=== PATIENT | female | born 1995 | race American Indian/Alaskan Native ===

== ENCOUNTER 2019-09-24 17:04 | Emergency (ER) | payer OTHER ==
[2019-09-24 17:10] VITALS: BP 159/101; PULSE 104; RESP 18; TEMP 98
[2019-09-24] MEDS ORDERED: LIDOCAINE 1% INJ 10MG/ML (20 ML MDV) SQ ONE (17:42)
[2019-09-24] MEDS ORDERED: CEPHALEXIN 500MG STARTER PACK 4 CAP BTL PO STA (18:26)
[2019-09-24] MEDS ORDERED: SULFAMETH-TMP DS STARTER PACK 2 TAB BTL PO STA (18:26)
--- NOTE | 2019-09-24 18:27 | ED ---
General Adult HPI - General Chief complaint: Skin/Abscess/Foreign Body Stated complaint: cyst lt armpit Time Seen by Provider: 09/24/19 17:12 Source: patient, RN notes reviewed Mode of arrival: ambulatory Limitations: no limitations - History of Present Illness Initial comments: 24-year-old female presents to the emergency department for a chief complaint of abscess left armpit. This has been there for about a week. States she has had abscesses before but not in this armpit. Denies fevers or chills. Denies any constitutional symptoms.Patient has no other complaints at this time including shortness of breath, chest pain, abdominal pain, nausea or vomiting, headache, or visual changes. - Related Data Previous Rx's Medication Instructions Recorded Cephalexin [Keflex] 500 mg PO Q6H #40 cap 09/24/19 Sulfamethox-Tmp 800-160Mg [Bactrim 1 tab PO Q12HR #20 tab 09/24/19 DS 800-160 mg] Allergies Allergy/AdvReac Type Severity Reaction Status Date / Time No Known Allergies Allergy Verified 09/24/19 17:10 Review of Systems ROS Statement: Those systems with pertinent positive or pertinent negative responses have been documented in the HPI. ROS Other: All systems not noted in ROS Statement are negative. Past Medical History Past Medical History: Diabetes Mellitus, Hypertension History of Any Multi-Drug Resistant Organisms: None Reported Past Surgical History: No Surgical Hx Reported Past Psychological History: No Psychological Hx Reported Smoking Status: Current every day smoker Past Alcohol Use History: None Reported Past Drug Use History: None Reported General Exam Limitations: no limitations General appearance: alert, in no apparent distress Head exam: Present: atraumatic, normocephalic, normal inspection Eye exam: Present: normal appearance, PERRL, EOMI. Absent: scleral icterus, conjunctival injection, periorbital swelling ENT exam: Present: normal exam, mucous membranes moist Neck exam: Present: normal inspection, full ROM. Absent: tenderness, meningismus, lymphadenopathy Respiratory exam: Present: normal lung sounds bilaterally. Absent: respiratory distress, wheezes, rales, rhonchi, stridor Cardiovascular Exam: Present: regular rate, normal rhythm, normal heart sounds. Absent: systolic murmur, diastolic murmur, rubs, gallop, clicks GI/Abdominal exam: Present: soft, normal bowel sounds. Absent: distended, tenderness, guarding, rebound, rigid Extremities exam: Present: other (patient has a 4 cm x 3 cm abscess in the left axilla, no surrounding erythema or spreading or streaking erythema.) Neurological exam: Present: alert Psychiatric exam: Present: normal affect, normal mood Course Vital Signs 09/24/19 17:07 Temperature 98.0 F Pulse Rate 104 H Respiratory 18 Rate Blood Pressure 159/101 O2 Sat by Pulse 100 Oximetry Procedures - Incision & Drainage Consent Obtained: verbal consent Site: upper extremity Anesthetic Used: lidocaine 1% Amount (mLs): 2 I&D Cleaning Method: Chloroprep Sterile Field Used?: Yes Scalpel Used: #11 I&D Drainage Obtained: Pus Patient Tolerated Procedure: well, no complications Medical Decision Making - Medical Decision Making Patient has a 3 x 4 cm abscess noted in the left axilla. There is no significant surrounding erythema. No spreading or streaking erythema. Patient is afebrile. I did incise and drain this area and did expel a moderate amount of purulent material. Patient will be placed on Keflex and Bactrim. Recommended warm converses daily discussed strict return parameters with her with his abscess due to its large size. I discussed that if she gets fevers or worsening symptoms to return. Discussed that if she is not having improvement in the next couple days she needs to return. Otherwise she will follow up with primary care or dermatology. Disposition Clinical Impression: Abscess Disposition: HOME SELF-CARE Condition: Good Instructions (If sedation given, give patient instructions): Abscess Incision and Drainage (ED), Abscess (ED) Additional Instructions: Please take antibiotics as directed. Apply warm compresses. If you develop any worsening symptoms such as fevers return immediately to the emergency department. If abscess is not improving in the next couple days return to the emergency department as well. Otherwise follow-up with primary care and dermatology. Prescriptions: Sulfamethox-Tmp 800-160Mg [Bactrim DS 800-160 mg] 1 tab PO Q12HR #20 tab Cephalexin [Keflex] 500 mg PO Q6H #40 cap Is patient prescribed a controlled substance at d/c from ED?: No Referrals: Sophie Sotomayor MD [REFERRING] - 1-2 days Florencio Walden MD [STAFF PHYSICIAN] - 1-2 days Time of Disposition: 18:26
== END 2019-09-24 18:45 | disposition home or self-care (01) ==
LOC: EC 17:04
DX: L02.412 Cutaneous abscess of left axilla (principal); F17.200 Nicotine dependence, unspecified, uncomplicated
CPT/HCPCS: 10060; 99283; J2001